=== PATIENT | male | born 1945 | race African-American/Black ===

== ENCOUNTER 2022-11-07 02:08 | Emergency (ER) | payer OTHER, MEDICAID ==
[~2022-11-07] VITALS: Ht 177.8 cm; Wt 109.0 kg
[~2022-11-07 02:08] MED LIST: Abilify
[2022-11-07 02:10] VITALS: BP 154/72
== END 2022-11-07 09:49 | disposition left against medical advice (07) ==
LOC: ER 02:08
DX: Z53.21 Procedure and treatment not carried out due to patient leaving prior to being seen by health care provider (principal)
CPT/HCPCS: 99281